=== PATIENT | male | born 1985 | race Caucasian/White ===

== ENCOUNTER 2016-05-22 11:54 | Emergency (ER) | payer OTHER ==
[~2016-05-22] VITALS: Ht 182.9 cm; Wt 74.8 kg
[~2016-05-22 11:54] MED LIST: BACTRIM DS TAB1 EACH PO; BACTROBAN CREAM30 G1 TOP; IBUPROFEN 600600 M1 PO; NAPROSYN500 MG PO; NORCO 5-325 TA1 EACH PO; ULTRAM 50MG TAB50 MG PO
[2016-05-22] MEDS ORDERED: TRAMADOL 50 MG50 MG PO (12:12)
[2016-05-22 12:33] LABS: ABSOLUTE NEUTROPHILS 7.8 thou/uL (1.4-8.2); BASOPHILS 0.7 % (0.0-2.0); EOSINOPHILS 2.1 % (0.0-3.0); HEMATOCRIT 49.1 % (42.0-52.0); HEMOGLOBIN 16.5 gm/dL (14.0-18.0); LYMPHOCYTES 21.1 % (24.0-44.0); MCHC 33.6 % (28.0-37.0); MCV 89.4 fL (80.0-100.0); MONOCYTES 8.8 % (1.0-8.0); PLATELET COUNT 274 thou/uL (150-400); POLYS 67.3 % (36.0-66.0); RBC 5.49 mil/uL (4.50-6.00); RDW 13.3 % (10.5-14.5); WBC 11.6 thou/uL (4.0-11.0)
[2016-05-22 12:35] LABS: MANUAL DIFF NO
[2016-05-22 12:42] LABS: CALCIUM 9.5 mg/dL (8.5-10.1); CREATININE 1.1 mg/dL (0.6-1.3); POTASSIUM 3.9 mmol/L (3.5-5.1)
[2016-05-22] MEDS ORDERED: TESSALON PERLE100 MG PO (14:05)
[2016-05-22] MEDS ORDERED: VENTOLIN HFA 1818 GM INH (14:05)
[2016-05-22] MEDS ORDERED: NAPROSYN500 MG PO (14:05)
[2016-05-22 14:17] VITALS: BP 128/79
== END 2016-05-22 14:18 | disposition home or self-care (01) ==
LOC: ER 11:54
PROVIDERS: Physician Assistant
DX: J21.9 Acute bronchiolitis, unspecified (principal); E86.0 Dehydration; J06.9 Acute upper respiratory infection, unspecified; F17.210 Nicotine dependence, cigarettes, uncomplicated

== ENCOUNTER 2016-09-10 21:29 | Emergency (ER) | payer OTHER ==
[~2016-09-10] VITALS: Ht 180.3 cm; Wt 86.2 kg
[~2016-09-10 21:29] MED LIST changes: +TESSALON PERLE100 MG PO; +TRAMADOL 50 MG50 MG PO; +VENTOLIN HFA 1818 GM INH
[2016-09-10] MEDS ORDERED: LIORESAL 10 MG10 MG PO (23:14)
[2016-09-10] MEDS ORDERED: NAPROXEN SODIU550 M1 PO (23:14)
[2016-09-10 23:30] VITALS: BP 152/87
== END 2016-09-10 23:31 | disposition home or self-care (01) ==
LOC: ER 21:29
DX: S93.402A Sprain of unspecified ligament of left ankle, initial encounter (principal); F17.210 Nicotine dependence, cigarettes, uncomplicated; W01.0XXA Fall on same level from slipping, tripping and stumbling without subsequent striking against object, initial encounter; Y93.E5 Activity, floor mopping and cleaning; Y92.89 Other specified places as the place of occurrence of the external cause; Y99.8 Other external cause status

== ENCOUNTER 2016-10-04 11:21 | Emergency (ER) | payer OTHER ==
[~2016-10-04 11:21] MED LIST changes: +LIORESAL 10 MG10 MG PO; +NAPROXEN SODIU550 M1 PO
[2016-10-04 11:22] VITALS: BP 122/77
== END 2016-10-04 11:53 | disposition left against medical advice (07) ==
LOC: ER 11:21
DX: Z53.21 Procedure and treatment not carried out due to patient leaving prior to being seen by health care provider (principal)

== ENCOUNTER 2017-04-04 08:57 | Emergency (ER) | payer OTHER ==
[~2017-04-04] VITALS: Ht 182.9 cm; Wt 79.4 kg
[2017-04-04] MEDS ORDERED: MOBIC7.5 MG PO (09:42)
[2017-04-04] MEDS ORDERED: CYCLOBENZAPRINE5 MG PO (09:42)
[2017-04-04] MEDS ORDERED: PREDNISONE 20 M20 MG PO (09:42)
[2017-04-04 10:16] VITALS: BP 129/83
== END 2017-04-04 10:17 | disposition home or self-care (01) ==
LOC: ER 08:57
DX: M54.5 Low back pain (principal); M41.9 Scoliosis, unspecified; R10.9 Unspecified abdominal pain; F17.210 Nicotine dependence, cigarettes, uncomplicated

== ENCOUNTER 2017-05-10 18:40 | Emergency (ER) | payer OTHER ==
[~2017-05-10] VITALS: Ht 182.9 cm; Wt 74.8 kg
[~2017-05-10 18:40] MED LIST changes: +CYCLOBENZAPRINE5 MG PO; +MOBIC7.5 MG PO; +PREDNISONE 20 M20 MG PO
[2017-05-10] MEDS ORDERED: HYDROCODONE-AP1 EAC6 PO (20:15)
[2017-05-10] MEDS ORDERED: IBUPROFEN 600600 M1 PO (20:16)
== END 2017-05-10 20:26 | disposition home or self-care (01) ==
LOC: ER 18:40
DX: S92.512A Displaced fracture of proximal phalanx of left lesser toe(s), initial encounter for closed fracture (principal); F17.210 Nicotine dependence, cigarettes, uncomplicated; W22.03XA Walked into furniture, initial encounter; Y93.89 Activity, other specified; Y92.89 Other specified places as the place of occurrence of the external cause; Y99.8 Other external cause status

== ENCOUNTER 2017-09-05 21:28 | Emergency (ER) | payer OTHER ==
[~2017-09-05] VITALS: Ht 175.3 cm; Wt 78.5 kg
[~2017-09-05 21:28] MED LIST changes: +HYDROCODONE-AP1 EAC6 PO
[2017-09-05] MEDS ORDERED: TESSALON PERLE100 MG PO (22:12)
[2017-09-05 22:27] VITALS: BP 123/73
== END 2017-09-05 23:50 | disposition home or self-care (01) ==
LOC: ER 21:28
DX: R05 Cough (principal); Z71.6 Tobacco abuse counseling

== ENCOUNTER 2017-12-17 18:02 | Emergency (ER) | payer OTHER ==
[~2017-12-17] VITALS: Ht 175.3 cm; Wt 79.4 kg
[2017-12-17 18:18] VITALS: BP 130/88
[2017-12-17] MEDS ORDERED: NORCO 5-325 TA1 EACH PO (18:54)
== END 2017-12-17 20:06 | disposition home or self-care (01) ==
LOC: ER 18:02
DX: K08.89 Other specified disorders of teeth and supporting structures (principal)

== ENCOUNTER 2018-02-16 17:35 | Emergency (ER) | payer OTHER ==
[~2018-02-16] VITALS: Ht 182.9 cm; Wt 80.7 kg
[2018-02-16] MEDS ORDERED: NORFLEX100 MG PO (19:11)
[2018-02-16] MEDS ORDERED: NAPROSYN500 MG PO (19:11)
[2018-02-16] MEDS ORDERED: ULTRAM 50MG TAB50 MG PO (19:11)
[2018-02-16 19:55] VITALS: BP 130/76
== END 2018-02-16 19:56 | disposition home or self-care (01) ==
LOC: ER 17:35
DX: K08.89 Other specified disorders of teeth and supporting structures (principal); S39.012A Strain of muscle, fascia and tendon of lower back, initial encounter; F17.210 Nicotine dependence, cigarettes, uncomplicated; X50.0XXA Overexertion from strenuous movement or load, initial encounter; Y92.89 Other specified places as the place of occurrence of the external cause; Y93.89 Activity, other specified; Y99.8 Other external cause status

== ENCOUNTER 2018-07-19 07:31 | Emergency (ER) | payer OTHER ==
[~2018-07-19] VITALS: Ht 167.6 cm; Wt 81.7 kg
[~2018-07-19 07:31] MED LIST changes: +NORFLEX100 MG PO
[2018-07-19 08:01] LABS: ABSOLUTE NEUTROPHILS 4.7 thou/uL (1.4-8.2); BASOPHILS 1.2 % (0.0-2.0); EOSINOPHILS 6.2 % (0.0-3.0); HEMATOCRIT 46.9 % (42.0-52.0); LYMPHOCYTES 38.4 % (24.0-44.0); MCH 30.6 pg (26.0-34.0); MCV 89.9 fL (80.0-100.0); MONOCYTES 10.8 % (1.0-8.0); PLATELET COUNT 255 thou/uL (150-400); POLYS 43.4 % (36.0-66.0); RBC 5.22 mil/uL (4.50-6.00); RDW 13.2 % (10.5-14.5); WBC 10.8 thou/uL (4.0-11.0)
[2018-07-19 08:11] LABS: CALCIUM 8.7 mg/dL (8.5-10.1); POTASSIUM 4.3 mmol/L (3.5-5.1)
[2018-07-19] MEDS ORDERED: PEPCID20 MG PO (08:41)
[2018-07-19] MEDS ORDERED: CARAFATE1 GM/10 ML PO (08:41)
[2018-07-19 08:49] VITALS: BP 123/74
== END 2018-07-19 08:45 | disposition home or self-care (01) ==
LOC: ER 07:31
PROVIDERS: Student in an Organized Health Care Education/Training Program
DX: K29.70 Gastritis, unspecified, without bleeding (principal); F17.210 Nicotine dependence, cigarettes, uncomplicated

== ENCOUNTER 2019-06-06 19:14 | Emergency (ER) | payer OTHER ==
[~2019-06-06] VITALS: Ht 175.3 cm; Wt 90.7 kg
[~2019-06-06 19:14] MED LIST changes: +CARAFATE1 GM/10 ML PO; +PEPCID20 MG PO
[2019-06-06 19:20] VITALS: BP 119/85
[2019-06-06] MEDS ORDERED: SUDAFED 12 HOU120 MG PO (20:28)
[2019-06-06] MEDS ORDERED: AUGMENTIN 875-1 EACH PO (20:28)
[2019-06-06] MEDS ORDERED: IBUPROFEN 800800 M1 PO (20:29)
== END 2019-06-06 21:10 | disposition home or self-care (01) ==
LOC: ER 19:14
DX: J32.8 Other chronic sinusitis (principal); J32.9 Chronic sinusitis, unspecified; F17.210 Nicotine dependence, cigarettes, uncomplicated

== ENCOUNTER 2019-11-07 17:17 | Emergency (ER) | payer OTHER ==
[~2019-11-07] VITALS: Ht 182.9 cm; Wt 85.7 kg
[~2019-11-07 17:17] MED LIST changes: +AUGMENTIN 875-1 EACH PO; +IBUPROFEN 800800 M1 PO; +SUDAFED 12 HOU120 MG PO
[2019-11-07 17:22] VITALS: BP 110/73
== END 2019-11-07 18:00 | disposition left against medical advice (07) ==
LOC: ER 17:17
DX: R51 Headache (principal); R53.1 Weakness; R07.89 Other chest pain; R10.9 Unspecified abdominal pain; M79.602 Pain in left arm; F17.210 Nicotine dependence, cigarettes, uncomplicated; Z79.2 Long term (current) use of antibiotics; Z79.899 Other long term (current) drug therapy; Z53.29 Procedure and treatment not carried out because of patient's decision for other reasons